=== PATIENT | female | born 1965 | race Caucasian/White ===

== ENCOUNTER 2017-03-03 16:31 | Emergency (ER) | payer MEDICAID ==
[~2017-03-03] VITALS: Ht 170.2 cm; Wt 79.1 kg
[2017-03-03 16:45] VITALS: BP 121/83
[2017-03-03] MEDS ORDERED: LORazepam 1MG TABLET ONE (17:52)
[2017-03-03] MEDS ORDERED: LORazepam 1MG TABLET PO ONE (18:00)
== END 2017-03-03 17:49 | disposition home or self-care (01) ==
LOC: ED 17:43
DX: Z76.0 Encounter for issue of repeat prescription (principal); I10 Essential (primary) hypertension
CPT/HCPCS: 99283

== ENCOUNTER 2017-03-22 13:24 | Inpatient (IN) | payer MEDICAID ==
[~2017-03-22] VITALS: Ht 170.2 cm; Wt 83.5 kg
[2017-03-22] MEDS ORDERED: THIAMINE 100 MG in SODIUM CHLORIDE 0.9% 50 ML IVPB ONE (16:30)
[2017-03-22] MEDS ORDERED: SODIUM CHLORIDE 0.9% 1,000ML IVBOLUS ONE ×2 (16:30→19:30)
[2017-03-22] MEDS ORDERED: ONDANSETRON 2MG/ML, 2ML IVPush ONE (16:30)
[2017-03-22] MEDS ORDERED: SODIUM CHLORIDE FLUSH 10ML SYR IVF ONE (16:30)
[2017-03-22] MEDS ORDERED: ONDANSETRON 2MG/ML, 2ML ONE (16:55)
[2017-03-22] MEDS ORDERED: LORazepam 2 MG/ML, 1ML ONE (16:55)
[2017-03-22] MEDS: LORazepam 2 MG/ML, 1ML IVPush PRN ×2 (17:02→22:40)
[2017-03-22 17:04] LABS: ASPARTATE AMINO TRANSFERASE 30 U/L (15-37); BLOOD UREA NITROGEN 26 mg/dL (7-18); DIFF TOTAL CELLS COUNTED 100 CELL DIFF
[2017-03-22 17:05] LABS: VERIFY COUNTS? YES
[2017-03-22 18:08] LABS: PATH.CAST-FLAG NOT PRESENT; SPERM-FLAG NOT PRESENT; SRC-FLAG NOT PRESENT; XTAL-FLAG NOT PRESENT; YLC-FLAG NOT PRESENT
[2017-03-22] MEDS ORDERED: CEFTRIAXONE PMX 1GM/50ML 50 ML ONE (18:56)
[2017-03-22] MEDS ORDERED: CLON1TAB23 PO (19:06)
[2017-03-22] MEDS ORDERED: GABA-826 PO (19:06)
[2017-03-22] MEDS ORDERED: DOXE150C PO (19:06)
[2017-03-22] MEDS ORDERED: IBUPROFEN 200 MG TABLET ONE (19:13)
[2017-03-22] MEDS ORDERED: CEFTRIAXONE 1,000 MG in SODIUM CHLORIDE 0.9% 50 ML IVPB ONE (19:30)
[2017-03-22] MEDS ORDERED: IBUPROFEN 200 MG TABLET PO ONE (19:30)
[2017-03-22] MEDS ORDERED: POTASSIUM CHLORIDE 20 MEQ, MAGNESIUM SULFATE 2 GM, THIAMINE 100 MG, MVI ADULT 10 ML, FO... IV SCH (19:53)
[2017-03-22] MEDS ORDERED: NS + 20MEQ KCL 1,000 ML IV SCH (19:53)
[2017-03-22] MEDS ORDERED: LORazepam 2 MG/ML, 1ML IVPush PRN (20:00)
[2017-03-22] MEDS ORDERED: DOCUSATE 100 MG CAPSULE PO PRN (20:00)
[2017-03-22] MEDS ORDERED: POLYETHYLENE GLYCOL 17 GM PACKET PO PRN (20:00)
[2017-03-22] MEDS ORDERED: THIAMINE 200 MG in SODIUM CHLORIDE 0.9% 50 ML IV ONE (20:00)
[2017-03-22] MEDS ORDERED: ENOXAPARIN 40 MG/0.4 ML SQ SCH (20:00)
[2017-03-22 21:34] LABS: DAU SCREEN DISCLAIMER
[2017-03-22] MEDS: POTASSIUM CHLORIDE 20 MEQ, MAGNESIUM SULFATE 2 GM, THIAMINE 100 MG, MVI ADULT 10 ML, FO... IV SCH (21:54)
[2017-03-22] MEDS: DOXYCYCLINE 100 MG in DEXTROSE 5% 250 ML IV SCH (21:54)
[2017-03-22] MEDS: GABAPENTIN 100 MG CAPSULE PO SCH (21:55)
[2017-03-22] MEDS: LACTULOSE 10 GM/15 ML UDC PO SCH ×2 (21:55→22:00)
[2017-03-22] MEDS: ENOXAPARIN 40 MG/0.4 ML SQ SCH ×2 (21:56→23:19)
[2017-03-22] MEDS: NICOTINE 14MG/24 HR PATCH.TD24 TD SCH (21:56)
[2017-03-22] MEDS: DOXEPIN 25 MG CAPSULE PO SCH (21:56)
[2017-03-22 22:30] VITALS: BP 121/75
[2017-03-22] MEDS: LORazepam 1MG TABLET PO PRN (22:41)
[2017-03-22 22:58] LABS: OCCBLD OBC PASS
[2017-03-23 00:30] VITALS: BP 130/82
[2017-03-23] MEDS: PANTOPRAZOLE 40 MG IV IVPush SCH ×3 (00:33→20:33)
[2017-03-23 05:54] LABS: BLOOD UREA NITROGEN 27 mg/dL (7-18)
[2017-03-23 06:06] LABS: ASPARTATE AMINO TRANSFERASE 17 U/L (15-37)
[2017-03-23 08:43] VITALS: BP 114/75
[2017-03-23] MEDS: GABAPENTIN 100 MG CAPSULE PO SCH ×3 (10:00→21:19)
[2017-03-23] MEDS: DOXYCYCLINE 100 MG in DEXTROSE 5% 250 ML IV SCH ×2 (10:00→21:18)
[2017-03-23] MEDS: LACTULOSE 10 GM/15 ML UDC PO SCH ×2 (10:05→21:19)
[2017-03-23 13:45] VITALS: BP 100/67
[2017-03-23] MEDS: LORazepam 1MG TABLET PO PRN (13:58)
[2017-03-23] MEDS: NS + 20MEQ KCL 1,000 ML IV SCH (16:03)
[2017-03-23 18:59] VITALS: BP 107/70
[2017-03-23] MEDS: CEFTRIAXONE PMX 1GM/50ML 50 ML IV SCH (20:33)
[2017-03-23] MEDS: DOXEPIN 25 MG CAPSULE PO SCH ×2 (21:00→21:20)
[2017-03-23] MEDS: NICOTINE 14MG/24 HR PATCH.TD24 TD SCH (21:20)
[2017-03-23] MEDS: POTASSIUM CHLORIDE 20 MEQ, MAGNESIUM SULFATE 2 GM, THIAMINE 100 MG, MVI ADULT 10 ML, FO... IV SCH (23:55)
[2017-03-24 00:56] VITALS: BP 106/71
[2017-03-24] MEDS: DOXEPIN 25 MG CAPSULE PO SCH ×2 (03:25→19:45)
[2017-03-24 06:08] LABS: ASPARTATE AMINO TRANSFERASE 21 U/L (15-37); BLOOD UREA NITROGEN 18 mg/dL (7-18)
[2017-03-24 08:15] VITALS: BP 110/78
[2017-03-24] MEDS: DOXYCYCLINE 100 MG in DEXTROSE 5% 250 ML IV SCH ×2 (08:46→21:25)
[2017-03-24] MEDS: LACTULOSE 10 GM/15 ML UDC PO SCH ×2 (08:46→19:45)
[2017-03-24] MEDS: PANTOPRAZOLE 40 MG IV IVPush SCH (08:46)
[2017-03-24] MEDS: GABAPENTIN 100 MG CAPSULE PO SCH ×3 (08:46→19:46)
[2017-03-24] MEDS: LORazepam 1MG TABLET PO PRN ×3 (08:48→23:24)
[2017-03-24] MEDS: NS + 20MEQ KCL 1,000 ML IV SCH (10:00)
[2017-03-24] MEDS ORDERED: CHLORDIAZEPOXIDE 25 MG CAPSULE PO PRN (11:30)
[2017-03-24] MEDS: NEUTRA PHOS K 250 MG TABLET PO SCH ×3 (11:30→19:46)
[2017-03-24 12:46] VITALS: BP 115/79
[2017-03-24 13:03] VITALS: BP 100/65
[2017-03-24] MEDS: PANTOPROZOLE 40MG TABLET PO SCH ×2 (13:18→19:46)
[2017-03-24 18:16] VITALS: BP 121/81
[2017-03-24] MEDS: CEFTRIAXONE PMX 1GM/50ML 50 ML IV SCH (19:43)
[2017-03-24] MEDS: NICOTINE 14MG/24 HR PATCH.TD24 TD SCH (19:45)
[2017-03-25 02:00] VITALS: BP 116/80
[2017-03-25 05:51] LABS: ASPARTATE AMINO TRANSFERASE 24 U/L (15-37); BLOOD UREA NITROGEN 11 mg/dL (7-18)
[2017-03-25 08:02] VITALS: BP 125/86
[2017-03-25] MEDS: DOXYCYCLINE 100 MG in DEXTROSE 5% 250 ML IV SCH (09:08)
[2017-03-25] MEDS: GABAPENTIN 100 MG CAPSULE PO SCH (09:08)
[2017-03-25] MEDS: LACTULOSE 10 GM/15 ML UDC PO SCH (09:08)
[2017-03-25] MEDS: NEUTRA PHOS K 250 MG TABLET PO SCH (09:08)
[2017-03-25] MEDS: PANTOPROZOLE 40MG TABLET PO SCH (09:08)
[2017-03-25] MEDS: LORazepam 1MG TABLET PO PRN (09:39)
[2017-03-25] MEDS ORDERED: LORA-446 PO (10:32)
[2017-03-25] MEDS ORDERED: CEFU500T50 PO (10:32)
[2017-03-25] MEDS ORDERED: OMEP-110 PO (10:32)
[2017-03-25 13:00] VITALS: BP 129/94
== END 2017-03-25 14:15 | disposition home or self-care (01) | DRG 872 ==
LOC: ED 18:59 → EDIP 19:00 → 4NOR 20:00 → 4WST 03-23 05:38
PROVIDERS: ADMIT Internal Medicine; ATTEND Internal Medicine
DX: A41.9 Sepsis, unspecified organism (principal); K92.2 Gastrointestinal hemorrhage, unspecified; F10.239 Alcohol dependence with withdrawal, unspecified; E87.1 Hypo-osmolality and hyponatremia; J44.9 Chronic obstructive pulmonary disease, unspecified; I10 Essential (primary) hypertension; F43.10 Post-traumatic stress disorder, unspecified; G43.909 Migraine, unspecified, not intractable, without status migrainosus; F17.200 Nicotine dependence, unspecified, uncomplicated; E87.8 Other disorders of electrolyte and fluid balance, not elsewhere classified; E87.6 Hypokalemia; K70.9 Alcoholic liver disease, unspecified; Z59.0 Homelessness; Z87.11 Personal history of peptic ulcer disease; Z88.6 Allergy status to analgesic agent; Z88.0 Allergy status to penicillin
CPT/HCPCS: 36415; 71010; 76700; 80053; 80307; 81001; 82272; 83605; 83690; 83735; 84100; 84145; 84443; 85025; 85610; 87040; 87086; 87205; 90471; 93005; 96361; 96375; J0696; J1650; J2405; J3411; J3475; J3480; J7042; J7060; C9113; J2060; J7030

== ENCOUNTER 2017-08-21 04:42 | Emergency (ER) | payer MEDICAID ==
[~2017-08-21] VITALS: Ht 170.2 cm; Wt 67.7 kg
[~2017-08-21 04:42] MED LIST: CEFU500T50 PO; CLON1TAB23 PO; DOXE150C PO; GABA-826 PO; LORA-446 PO; OMEP-110 PO
[2017-08-21] MEDS ORDERED: KETOROLAC 30 MG/1 ML ONE (05:11)
[2017-08-21 05:30] VITALS: BP 128/74
[2017-08-21] MEDS ORDERED: KETOROLAC 30 MG/1 ML IM ONE (05:30)
== END 2017-08-21 05:32 | disposition home or self-care (01) ==
LOC: ED 05:26
DX: S46.812A Strain of other muscles, fascia and tendons at shoulder and upper arm level, left arm, initial encounter (principal); W51.XXXA Accidental striking against or bumped into by another person, initial encounter; Y93.01 Activity, walking, marching and hiking; Y99.8 Other external cause status; Y92.410 Unspecified street and highway as the place of occurrence of the external cause
CPT/HCPCS: 96372; 99283; J1885